=== PATIENT | male | born 1950 | race Caucasian/White ===

== ENCOUNTER → 2016-07-19 | Outpatient (CLI) | payer OTHER ==
--- NOTE | 2016-07-19 18:14 | DX ---
Leg length evaluation INDICATION: Femur fracture in November. Possible limb length discrepancy. TECHNIQUE: Standing AP view of the pelvis and lower extremities. COMPARISON: Intraoperative spot films from placement of left femoral neck dynamic compression screw a nd femoral pal. FINDINGS: The left femoral neck screw remains well seated and appropriately interlocks with the femo ral nail. The distal interlocking screw has disengaged from the medial cortex of the distal femur (re michael engaged with the femoral nail). The proximal left femoral fracture has nicely healed with exube rant smooth flowing callus along the medial and lateral cortex. The right femoral head resides 11 mm superior to the left femoral head resulting in mild pelvic tilt. The right femur from the articular surface of the medial femoral condyle to the apex the of right fe moral head measures 52 cm. The left femur measures 50 cm. The left talar dome resides 6 mm superior to the right talar dome and the left medial tibial plateau resides 7 mm superior to the right medial tibial plateau. IMPRESSION: 1. Limb length discrepancy with the overall length of the left leg approximately 11 mm shorter than t he right. The left femur is 2 cm shorter than the right femur, however, there is slight compensation by asymmetric discrepancy at the level of the talar dome and tibial plateaus. 2. Interlocking screw in the distal femoral nail has disengaged from the medial cortex. 3. Nicely fused proximal left femur fracture.
== END ==
LOC: FIMAGING 14:21
PROVIDERS: ATTEND Orthopaedic Surgery
DX: M21.752 Unequal limb length (acquired), left femur (principal)

== ENCOUNTER → 2017-09-13 | Outpatient (CLI) | payer OTHER | LOC: CIMAGING 08:09 | PROVIDERS: ATTEND Family Medicine | DX: J98.4 Other disorders of lung (principal); I25.84 Coronary atherosclerosis due to calcified coronary lesion | CPT/HCPCS: 71250-PO ==